=== PATIENT | female | born 1975 | race Caucasian/White ===

== ENCOUNTER 2024-05-13 16:12 | Emergency (ER) | payer SELFPAY ==
[~2024-05-13] VITALS: Ht 165.1 cm; Wt 91.0 kg
[2024-05-13 16:14] VITALS: TEMP 97.1; O2SAT 99
[2024-05-13] MEDS: FAMOTIDINE 20MG/2ML VIAL IV ONE (17:18)
[2024-05-13] MEDS: METHYLPREDNISOLONE SOD SUCC 125MG/2ML (ACT-O-VIAL) IV ONE (17:18)
[2024-05-13] MEDS: DIPHENHYDRAMINE 50MG/ML VIAL IV ONE (17:18)
[2024-05-13] MEDS: SODIUM CHLORIDE 0.9% 1,000 ML IV ONE (17:32)
[2024-05-13 18:44] VITALS: BP 120/78; PULSE 80; RESP 17
[2024-05-13] MEDS ORDERED: EPIN0.3P3 IM (18:57)
[2024-05-13] MEDS ORDERED: DIPH25CA83 MT (18:57)
== END 2024-05-13 19:28 | disposition home or self-care (01) ==
LOC: ER 16:12
DX: T78.40XA Allergy, unspecified, initial encounter (principal); Z98.890 Other specified postprocedural states; Y92.89 Other specified places as the place of occurrence of the external cause
CPT/HCPCS: 96361; 96374; 96375; 99284; J1200; J3490; J2919; J7030; Z7610